=== PATIENT | male | born 2000 | race Caucasian/White ===

== ENCOUNTER 2025-08-21 08:36 | Emergency (ER) | payer SELFPAY ==
[2025-08-21 08:46] VITALS: BP 126/78
--- NOTE | 2025-08-21 08:57 | ED.GENMED ---
History of Present Illness
General
Chief Complaint: Musculo-Skeletal Complaint
Time Seen by Provider: 08/21/25 08:57
History of Present Illness
History of Present Illness:
FOCUSED PAST MEDICAL HISTORY
- No significant past medical history
REVIEW OF OLD RECORDS
- No old records available for review in [facility]
Note:
CHIEF COMPLAINT(S)
Right ankle swelling and pain after an injury.
HISTORY OF PRESENT ILLNESS
The patient is a 25-year-old male who presented with swelling and pain in the right ankle following an injury today. While working on a skidsteer, the locking mechanism malfunctioned, causing the cab to slam shut. The patient jumped to the ground to
avoid injury. He reports significant swelling around the right ankle but denies any other injuries or head trauma. The patient notes the pain is primarily located at the bottom of the heel and describes difficulty bearing weight on the affected
ankle. He mentions that the pain was exacerbated when wearing a boot due to swelling, but improves slightly when the boot is removed.
EXTERNAL RECORDS REVIEWED
An X-ray examination of the right ankle was completed. The images were reviewed and showed alignment without evidence of fracture or dislocation. There may be an involvement of the anterior talofibular ligament, indicating a sprain, but no
definitive fracture was observed. Radiology has not yet read these images.
PHYSICAL EXAM
General: Alert, no acute distress.
Skin: Warm, dry.
Head: Normocephalic, atraumatic.
Neck: Supple, trachea midline.
Eye Ears, nose, mouth and throat: Oral mucosa moist.
Cardiovascular: Normal peripheral perfusion, no edema.
Respiratory: Respirations are non-labored.
Gastrointestinal: Abdomen nondistended.
Back: Normal range of motion, normal alignment.
Musculoskeletal: Right ankle with marked soft tissue swelling inferior to the lateral malleolus, decreased range of motion due to pain, but no visible dislocation.
Neurological: Alert and oriented to person, place, time, and situation, no focal neurological deficit observed.
Psychiatric: Cooperative, appropriate mood & affect.
PROBLEM LIST
Acute Problems:
- Right ankle sprain with soft tissue swelling and decreased range of motion
PLAN
- Application of a splint that the patient can easily remove
- Provide crutches for mobility assistance
- Prescribed Motrin for pain management; to be continued at home as needed
- Referral to Dr. Rondon for orthopedic follow-up care
- Instruct patient on use of ice and elevation for swelling reduction
- Ensure patient understands the importance of monitoring symptoms and following up as necessary
DIFFERENTIAL DIAGNOSIS
The Differential Diagnosis includes, in no particular order and is not limited to:
- Ankle sprain
- Contusion
- Ligament tear
- Tendon injury
- Soft tissue injury
- Joint effusion
- Calcaneus fracture
- Achilles tendonitis
- Ankle dislocation
- Compartment syndrome
RADIOLOGY
- Soft tissue swelling noted over the lateral malleolus with no clear sign of fracture
UPDATE
-SUMMARY OF ENCOUNTER
The patient, a 25-year-old male, presented to the emergency department with swelling and pain in the right ankle following an injury. While working on a skidsteer, a locking mechanism malfunctioned, causing the cab to slam shut, leading the patient
to jump to the ground. The primary complaint was significant swelling and difficulty bearing weight on the right ankle. An X-ray examination was ordered and reviewed, showing proper alignment and no fractures or dislocations. There was suspicion of
anterior talofibular ligament involvement indicating a sprain, but no definitive fractures were noted. A splint was applied, and the patient was provided with crutches and prescribed ibuprofen for pain management. Referral to Dr. Rondon, an
health care specialist, was made for follow-up care.
DISPOSITION
Discharge.
ASSESSMENT
The patient has a right ankle sprain, characterized by significant swelling and pain, but no fractures or dislocations according to the X-ray review.
PLAN
- Application of a removable splint
- Provision of crutches for mobility
- Prescription of ibuprofen for pain management
- Referral to Dr. Rondon for orthopedic follow-up
- Advice on using ice and keeping the leg elevated to manage swelling
- Instructions to monitor symptoms and seek further consultation if there is no improvement in swelling or pain
INDEPENDENT REVIEW OF LABS AND INTERPRETATION OF TESTS
My independent interpretation of the X-ray of the right ankle is that there is proper alignment, no fractures or dislocations, and possible anterior talofibular ligament sprain.
PATIENT EDUCATION AND COUNSELING
The patient was advised on the importance of using ice and keeping the leg elevated to reduce swelling. Information was provided regarding the possibility of improvement without surgery. Instructions were given to contact Dr. Rondon if the
swelling does not decrease or if further concerns arise.
FOLLOW-UP INSTRUCTIONS
The patient was advised to follow up with Dr. Rondon, an health care specialist, if symptoms persist or worsen.
MEDICATION RECONCILIATION
Ibuprofen was prescribed for pain management.
MEDICAL DECISION MAKING
- Complexity of Data Reviewed: Differential diagnosis includes ankle sprain, contusion, ligament tear, tendon injury, soft tissue injury, joint effusion, calcaneus fracture, Achilles tendonitis, ankle dislocation, compartment syndrome.
- Data:
Category 1:
Non-emergency department records reviewed. External record reviewed: The patients X-ray was independently interpreted.
Category 2:
My independent interpretation of the X-ray of the right ankle confirmed no fractures or dislocations.
-Risk:
Prescription medication was prescribed: Ibuprofen for pain management.
DIAGNOSIS
Right ankle sprain (S93.401A).
- Placed in splint and gave crutches
Phy Exam
Physical Exam
Physical Exam:
See HPI
Course
Orders/Labs/Results
Orders:
Orders
08/21/25 08:46
Ankle, Right 3 view CR [CR Ankle - Right Min 3 Views *] Urgent
Comment:
Reason For Exam: fall
08/21/25 09:04
Air Splint Right-Treatment ONCE
Crutches-Treatment ONCE
Ibuprofen [Motrin] 800 mg PO NOW STA
Vital Signs
Initial and Last Documented VS:
Initial Vital Signs
Temp Pulse Resp Pulse Ox
36.2 C 72 16 99
08/21/25 08:44 08/21/25 08:44 08/21/25 08:44 08/21/25 08:44
Last Documented Vital Signs
Temp Pulse Resp BP Pulse Ox
36.2 C 72 16 126/78 99
08/21/25 08:44 08/21/25 08:44 08/21/25 08:44 08/21/25 08:46 08/21/25 09:00
*Pulse Oximetry
SaO2: 99
Oxygen Mode of Delivery: Room air
Patient hypoxic: no
*Critical Care Note
Total Time (30-74mins, 75-104mins- exclusive of procedures): Not Applicable
ED Attending Note
-
Portions of this chart may have been created with voice recognition software.� Occasional wrong word or��sound alike� substitutions may have occurred due to the inherent limitations of voice recognition software.
Discharge Plan
Departure
Patient Disposition: Home (Routine Discharge)
Date of Disposition: 08/21/25
Time of Disposition: 09:06
Patient with high blood pressure during this ER visit?: Yes
Discharge Problem:
Ankle sprain
Instructions: Ankle sprain - ED (DC), BLOOD PRESSURE
Prescriptions:
No Action
No Current Medications
0
Referrals:
Werner Rondon MD [Active, Orthopedics]
Activity Restrictions/Additional Instructions:
I recommend 3-4 [id number]-[id number] ibuprofen (Motrin) every 8 hours with food for a few days. Return here if worse. Follow-up with Dr. Rondon.
Interventions
Interventions:
*Risk Screen - Suicide Last Done: 08/21/25 08:44
*General Assessment Last Done: 08/21/25 08:44
*Neglect/Abuse Screening Last Done: 08/21/25 08:44
*ED- Fall Risk Assessment Last Done: 08/21/25 09:53
*ED COVID-19 Vaccine History Last Done: 08/21/25 09:31
*ED Influenza Vaccine History Last Done: 08/21/25 09:31
*Nursing Disposition Last Done: 08/21/25 09:53
ED-Musculoskeletal Assessment Last Done: 08/21/25 09:31
Discharge Date and Time
Discharge Date/Time: 08/21/25 09:56
Print Language: AZERI
[2025-08-21 09:31] VITALS: BMI 24.3
[2025-08-21] MEDS: MOTRIN 800 MG PO (09:48)
== END 2025-08-21 09:56 | disposition home or self-care (01) ==
LOC: EMR 08:36
PROVIDERS: EMERGENCY PHYSICIAN Emergency Medicine
DX: S93.401A Sprain of unspecified ligament of right ankle, initial encounter (principal); W17.89XA Other fall from one level to another, initial encounter; Y99.0 Civilian activity done for income or pay
CPT/HCPCS: 99283; 73610